=== PATIENT | female | born 1935 | race Caucasian/White ===

== ENCOUNTER → 2017-08-02 | Outpatient (CLI) | payer MEDICARE, BC | END | disposition home or self-care (01) | LOC: KCIC US 13:05 | DX: E04.2 Nontoxic multinodular goiter (principal) | CPT/HCPCS: 76536 ==

== ENCOUNTER → 2018-08-25 | Outpatient (CLI) | payer MEDICARE, BC ==
[~2018-08-25] MED LIST: CEPH-263 PO; OMEP10CA PO
--- NOTE | 2018-08-25 11:36 | KCIC ---
THYROID ULTRASOUND History: Follow-up of thyroid nodules. Comparison: Thyroid ultrasound, August 02, 2017. Technique: Multiple grayscale and color Doppler images of the thyroid gland were obtained. Findings: Measurements in length, AP (height), and transverse (width), respectively, unless otherwise stated. The right thyroid lobe measures 5 x 0.9 x 1.6 cm. The right thyroid lobe is multinodular. There is a stable cyst in the mid thyroid lobe. Mixed cystic and solid nodule in the inferior left thyroid lobe. Cystic portion contains colloid. The most suspicious nodule is characterized TR3, greatest dimension 1.3 cm. This nodule is in the mid to inferior right thyroid lobe. Nodule may have been present on the prior study but was not specifically measured. The left thyroid lobe measures 4.7 x 1.4 x 1.7 cm. The left thyroid lobe is multinodular. The most suspicious nodule is characterized TR4 in the mid left thyroid lobe, greatest dimension 0.8 cm. Nodule is unchanged from prior study, was not previously specifically measured. Multiple tiny colloid cysts are seen in the left thyroid lobe. The isthmus measures 2 mm. There is a 1.1 cm cyst of the right isthmus. ACR Thyroid Imaging, Reporting And Data System (TI-RADS): White Paper Of The ACR TI-RADS Committee. Journal of the [employer], volume 14, issue 5, pages 587-595 (November 2016). IMPRESSION: Multinodular thyroid gland without significant change. Consider ultrasound follow-up in 12 months. Electronically signed by: Wilton Alejandra MD (08/25/2018 11:31 AM) [id number]
== END | disposition home or self-care (01) ==
LOC: KCIC US 10:22
PROVIDERS: ATTEND Otolaryngology
DX: E04.2 Nontoxic multinodular goiter (principal)
CPT/HCPCS: 76536

== ENCOUNTER → 2018-11-24 | Outpatient (CLI) | payer MEDICARE, BC ==
--- NOTE | 2018-11-24 12:22 | KCIC ---
EXAM: Carotid Doppler sonogram. HISTORY: Dizziness. Lightheadedness.. TECHNIQUE: Stewart scale and color Doppler sonographic evaluation of the neck with spectral waveform analysis was performed and static images are submitted for review. FINDINGS: There is intimal thickening involving the common carotid arteries and mild atherosclerotic plaque involving the carotid bulbs and proximal internal and external carotid arteries. The peak systolic velocity within the right common carotid artery is 72 cm/sec. The peak systolic velocity within the right internal carotid artery is 85 cm/sec and the end diastolic velocity within the right internal carotid artery is 19 cm/sec. The right ICA/CCA ratio is 1.19. The peak systolic velocity within the left common carotid artery is 91 cm/sec. The peak systolic velocity within the left internal carotid artery is 76 cm/sec and the end diastolic velocity within the left internal carotid artery is 21 cm/sec. The left ICA/CCA ratio is 0.84. There is normal antegrade flow within both vertebral arteries. IMPRESSION: No Doppler evidence of hemodynamically significant stenosis within the carotid or vertebral arteries. PQRS Compliance Statement - Stenosis calculations for CT, MR and conventional angiography are based upon measurement of the distal ICA diameter in accordance with the NASCET methodology. Stenosis calculations for carotid ultrasound studies are derived from validated velocity criteria which are known to correlate with the NASCET methodology. Electronically signed by: Piedad Osei MD (11/24/2018 12:19 PM) [place] [id number]
== END | disposition home or self-care (01) ==
LOC: KCIC US 08:48
PROVIDERS: ATTEND Family Medicine
DX: I65.23 Occlusion and stenosis of bilateral carotid arteries (principal)
CPT/HCPCS: 93880

== ENCOUNTER → 2019-09-04 | Outpatient (CLI) | payer MEDICARE, BC ==
--- NOTE | 2019-09-04 15:52 | KCIC ---
Thyroid ultrasound dated 09/04/2019. Comparison made to 08/25/2018. CLINICAL INDICATION: Follow-up thyroid nodules. FINDINGS: Right lobe thyroid gland measures 5.0 cm length. Left lobe measures 5.8 cm in length. There are multiple solid and cystic nodules throughout both lobes, unchanged. The largest on the right is located at the lower pole measuring about 1.3 cm maximum dimension, unchanged. The largest on the left measures approximately 8 mm maximum dimension at the midpole, unchanged. No new lesions are seen. Thyroid isthmus unremarkable. IMPRESSION: No significant interval change in bilateral thyroid nodules. Electronically signed by: Pedro De Los Santos MD (09/04/2019 3:00 PM) [facility]-[id number]
== END | disposition home or self-care (01) ==
LOC: KCIC US 10:38
PROVIDERS: ATTEND Otolaryngology
DX: E04.2 Nontoxic multinodular goiter (principal)
CPT/HCPCS: 76536

== ENCOUNTER → 2020-09-16 | Outpatient (CLI) | payer MEDICARE, BC ==
--- NOTE | 2020-09-16 17:15 | KCIC ---
MRI of the lumbar spine without contrast 09/16/2020 CLINICAL HISTORY: Low back pain which radiates down the left leg for one month. History of previous l umbar spine surgery. TECHNIQUE: Unenhanced T1-weighted and T2-weighted sagittal and axial and inversion recovery sagittal images of the lumbar spine were obtained. FINDINGS: Minimal S-shaped curvature of the thoracolumbar spine is seen. Cagelike devices are seen wi thin the L4-5 and L5-S1 disc spaces. Degenerative signal changes are seen involving the remaining dis cs of the lumbar spine. Degenerative signal changes within the marrow surrounding these discs. The co nus medullaris is normal morphology, position, and signal characteristics. At the L1-2 and L2-3 disc spaces there are minimal generalized disc bulges. Degenerative changes are seen involving the facet joints bilaterally. There is mild ligamentum flavum hypertrophy bilaterally. These findings do not result in significant central spinal canal or neural foraminal stenosis. At the L3-4 disc space there is a mild to moderate generalized disc bulge. This is eccentric to the l eft. Superimposed on this disc bulge is a focal central disc herniation. This measures 5 mm in AP haley meter. It extrudes inferiorly and laterally to the left. Degenerative changes are seen involving the facet joints bilaterally. There is mild to moderate ligamentum flavum hypertrophy bilaterally. Small facet joint effusions are seen bilaterally. These findings when combined result in mild to moderate l eft greater than right central spinal canal stenosis. Severe left lateral recess stenosis is seen. Th e disc herniation appears to impinge upon the left L4 nerve root within the left lateral aspect of th e central spinal canal. No neural foraminal stenosis is seen. At the L4-5 level, the patient is post right hemilaminectomy. Degenerative changes are seen involving the facet joints bilaterally. There is mild left sided ligamentum flavum hypertrophy. These findings do not result in significant central spinal canal or neural foraminal stenosis. At the L5-S1 level the patient is post right hemilaminectomy. Degenerative changes are seen involving the facet joints bilaterally. These findings do not result in significant central spinal canal or ne ural foraminal stenosis. IMPRESSION: 1. The patient is post right hemilaminectomy and fusion at L4-5 and L5-S1. 2. The changes of degenerative disc disease are seen throughout the lumbar spine. At the L4-5 disc sp ruddy a left paracentral focal disc herniation is seen which extrudes inferiorly and laterally to the l eft. This contributes to mild to moderate left greater than right central spinal canal stenosis with severe left lateral recess stenosis. It appears to impinge upon the left L4 nerve root within the lef t lateral aspect of the central spinal canal. Electronically signed by: Gilberto Mendes MD (09/16/2020 5:12 PM) [id number]
== END ==
LOC: KCIC MRI 09:47
PROVIDERS: ATTEND Family Medicine
DX: M51.16 Intervertebral disc disorders with radiculopathy, lumbar region (principal); M48.061 Spinal stenosis, lumbar region without neurogenic claudication; M47.26 Other spondylosis with radiculopathy, lumbar region; M25.48 Effusion, other site; Z98.890 Other specified postprocedural states
CPT/HCPCS: 72148

== ENCOUNTER 2020-12-02 09:46 | Emergency (ER) | payer MEDICARE, BC ==
[~2020-12-02] VITALS: Ht 165.1 cm; Wt 54.6 kg
--- NOTE | 2020-12-02 11:31 | PHYS DOC ---
Past Medical History Past Medical History: Anxiety, Diabetes-Type II (EMILIANO STEVEN ) Past Medical History: Anxiety, Diabetes-Type II (RUDDY BLACKBURN APRN) Past Surgical History: Cholecystectomy, Tonsillectomy, Other Additional Past Surgical Histo: 2 lower back surgies (EMILIANO STEVEN ) Past Surgical History: Cholecystectomy, Tonsillectomy Additional Past Surgical Histo: 2 back surgeries (RUDDY BLACKBURN APRN) Smoking Status: Never Smoker Alcohol Use: None (EMILIANO STEVEN ) Smoking Status: Never Smoker Alcohol Use: None Drug Use: None (RUDDY BLACKBURN APRN) General Adult EDM: Chief Complaint: MECHANICAL FALL HPI: HPI: 85 yo F (EMILIANO STEVEN ) HPI: Patient is 85-year-old female who presents emergency department with complaints of a laceration to her forehead after tripping in her garage, losing her balance and falling and hitting her head on the floor in her kitchen. Patient denies any loss of consciousness, vision changes, dizziness, nausea, vomiting, neck pain, back pain, or extremity pain after the fall. Her only complaint is a laceration above her right eye. Patient is unsure when her last tetanus shot was. She currently rates her pain a 6 out of 10 on pain scale, she denies any alleviating factors, the pain is worse if you touch the affected area. She denies the use of any blood thinners. She denies any chest pain, dizziness, or palpitations prior to the fall or after the fall. (RUDDY BLACKBURN APRN) Review of Systems: Review of Systems: Constitutional: Denies fever or chills. [] Eyes: Denies change in visual acuity. [] HENT: Denies nasal congestion or sore throat. [] Respiratory: Denies cough or shortness of breath. [] Cardiovascular: Denies chest pain or edema. [] GI: Denies abdominal pain, nausea, vomiting, bloody stools or diarrhea. [] : Denies dysuria. [] Musculoskeletal: Denies back pain or joint pain. [] Integument: Denies rash. [] Neurologic: Denies headache, focal weakness or sensory changes. [] Endocrine: Denies polyuria or polydipsia. [] Lymphatic: Denies swollen glands. [] Psychiatric: Denies depression or anxiety. [] (EMILIANO STEVEN DO) Review of Systems: Complete ROS is negative unless otherwise noted in HPI. (RUDDY BLACKBURN APRN) Heart Score: C/O Chest Pain: No Risk Factors: Risk Factors: DM, Current or recent (<one month) smoker, HTN, HLP, family history of CAD, obesity. Risk Scores: Score 0 - 3: 2.5% MACE over next 6 weeks - Discharge Home Score 4 - 6: 20.3% MACE over next 6 weeks - Admit for Clinical Observation Score 7 - 10: 72.7% MACE over next 6 weeks - Early Invasive Strategies (EMILIANO STEVEN DO) C/O Chest Pain: No (RUDDY BLACKBURN APRN) Allergies: Allergies: Allergies Coded Allergies Type Severity Reaction Last Updated Verified Sulfa (Sulfonamide Antibiotics) Allergy Intermediate shaking, rash 12/02/20 Yes codeine Allergy Intermediate rash, shaking 12/02/20 Yes erythromycin base Allergy Intermediate shaking, rash 12/02/20 Yes (EMILIANO STEVEN DO) Physical Exam: PE: Constitutional: Well developed, well nourished, no acute distress, non-toxic appearance. HENT: Normocephalic, atraumatic, Eyes: EOMI, conjunctiva normal, no discharge. Neck: Normal range of motion, supple, Cardiovascular: S1/2 present, regular rhythm Lungs & Thorax: Speaking in full sentences, bilateral equal chest rise, no tachypnea or increased work of breathing Abdomen: soft, no tenderness, Skin: Warm, dry, no erythema, no rash. [] Back: No tenderness, no CVA tenderness. [] Extremities: No tenderness, no cyanosis, no lower extremity edema Neurologic: Alert and oriented X 3, normal motor function, normal sensory function, no focal deficits noted. [] Psychologic: Affect normal, judgement normal, mood normal. [] (EMILIANO STEVEN DO) PE: Constitutional: Well developed, well nourished, no acute distress, non-toxic appearance. [] HENT: Normocephalic, bilateral external ears normal, nose normal; swelling and laceration above right eye Eyes: PERRLA, EOMI, conjunctiva normal, no discharge. [] Neck: Normal range of motion, no stridor, nontender, no crepitus. [] Cardiovascular:Heart rate regular rhythm Lungs & Thorax: Respirations even and unlabored, no retractions, no respiratory distress Skin: Warm, dry, no erythema, no rash; 2 cm x 6 cm stellate laceration above the right eye, no visible foreign body, no active bleeding, [] Extremities: No cyanosis, ROM intact, no edema. [] Neurologic: Alert and oriented X 3, no focal deficits noted. [] Psychologic: Affect normal, judgement normal, mood normal. [] (RUDDY BLACKBURN APRN) Current Patient Data: Vital Signs: Vital Signs Date Time Temp Pulse Resp B/P (MAP) Pulse Ox O2 Delivery O2 Flow Rate FiO2 12/02/20 11:06 76 16 123/61 (81) 97 Room Air 12/02/20 10:02 99.0 99.0 (EMILIANO STEVEN DO) EKG: EKG: [] (EMILIANO STEVEN DO) Radiology/Procedures: Radiology/Procedures: [] (EMILIANO STEVEN DO) Radiology/Procedures: PROCEDURE: CT HEAD AND CERVICAL SPINE WO CT Head W/O Contrast: History: Reason: fall head injury / Spl. Instructions: / History: Comparison: none Axial images were obtained without contrast. There is moderate diffuse atrophy. There is no mass effect, extraaxial fluid collections or hydrocephalus. There is no focal loss of snow-white matter distinction to suggest acute ischemia, i.e. stroke. There is a small ossification in the interhemispheric fissure. There is c alcification arising posteriorly from the inner table calvarium on the right which could be a meningioma. Impression: No acute findings. End impression CT C-Spine without contrast: Clinical History: Reason: fall head injury / Spl. Instructions: / History: Technique: Axial helical images of the cervical spine were obtained without contrast, axial coronal and sagittal reconstruction was performed. Findings: There is no loss of vertebral body stature. There is no prevertebral soft tissue swelling. The vertebral bodies are well aligned. There is straightening of the normal cervical lordosis which can be positional or could be chronic. The C1-C2 relationship is normal. The visualized osseous structures appear normal. Evaluation of the central canal is limited without contrast. There is multiple posterior disc bulges resulting in flattening of the thecal sac. There does not appear to be gross flattening of the cervical cord. There is moderate narrowing of multiple neuroforamen. There is a small cervical rib fracture on the right. Impression: No acute findings. Clinical correlation suggested. End impression Electronically signed by: Chuy Christensen III, MD (12/02/2020 2:32 PM) [id number] Laceration Repair by me: Anesthesia: 1% lidocaine locally with epinephrine Location: Right forehead Tendon/Joint/Nerves: No injury Foreign body: None detected after copious irrigation and exploration with NS and chlorhexidine Technique: 14 Simple Interrupted Sutures with 6-0 Ethilon Complexity: No subcutaneous sutures/mucosal repair/edge excision Post Closure Length: 8 cm total Patient's bleeding was easily controlled in the department and there is no indication of anemia. No evidence of compartment syndrome, neurologic injury, vascular injury, open gamaliel int, tendon laceration, or foreign body. Patient is appropriate for outpatient follow up. Scar minimazation instructions given. [] (RUDDY BLACKBURN APRN) Course & Med Decision Making: Course & Med Decision Making Pertinent Labs and Imaging studies reviewed. (See chart for details) [] (EMILIANO SETVEN DO) Course & Med Decision Making Patient is 85-year-old female who presents emergency department with complaints of a laceration of her right CT the patient's head revealed no acute findings. CT of the patient's neck revealed a small cervical rib fracture on the right. Wound repair as documented above. Prescription written for Keflex 500 mg p.o. 4 times daily x7 days. Patient instructed to take Tylenol or ibuprofen as needed for pain. Follow-up with primary care doctor return to the ER in 7 days to have sutures removed. I advised the patient to not submerge her head in water until the sutures have been removed. Patient and her verbalized an understanding of home care, medications, follow-up, and return to ED instructions and was in agreement with the plan of care. (RUDDY BLACKBURN APRN) Dragon Disclaimer: Dragon Disclaimer: This electronic medical record was generated, in whole or in part, using a voice recognition dictation system. (EMILIANO STEVEN DO) Departure Departure Impression: Primary Impression: Laceration of forehead, right, complicated Qualified Codes: S01.81XA - Laceration without foreign body of other part of head, initial encounter Additional Impressions: Need for Tdap vaccination Closed head injury without loss of consciousness Qualified Codes: S09.90XA - Unspecified injury of head, initial encounter Disposition: HOME / SELF CARE / HOMELESS Condition: STABLE Referrals: SEBLE ARAGON MD (PCP) Patient Instructions: Facial Laceration, [id number], Head Injury, Adult, [id number], VIS, Tetanus, Diphtheria (Td); Tetanus, Diphtheria, Pertussis (Tdap) - [facility] Additional Instructions: Fill the prescription and use it as directed. Keep the area clean and dry. You may take Tylenol or ibuprofen as needed for pain. Cleanse the affected area with soap and water twice a day, apply dressing as needed. Follow-up with your primary care doctor, or return to the emergency room in 7 days to have the sutures removed, sooner if you develop signs of infection including: redness, warmth, drainage, or a fever. Follow the head injury precautions provided. Follow up with your primary care doctor in 1-2 days for reevaluation. Return to the ER if symptoms worsen. Scripts Cephalexin (CEPHALEXIN) 500 Mg Capsule 1 CAP PO QID for 7 Days, #28 CAP 0 Refills Prov: RUDDY BLACKBURN APRN 12/02/20 EMILIANO STEVEN DO December 02, 2020 11:31 RUDDY BLACKBURN APRN December 02, 2020 15:22
[2020-12-02] MEDS ORDERED: DIPH,PERTUSS(ACELL),TET VAC/PF 0.5 ML SYRINGE. VAX IM ONE (14:00)
[2020-12-02] MEDS ORDERED: LIDOCAINE 1%/EPI 1:100,000 20 ML VIAL. SQ ONE (14:00)
[2020-12-02 14:17] VITALS: BP 169/70
--- NOTE | 2020-12-02 14:35 | RAD ---
CT Head W/O Contrast: History: Reason: fall head injury / Spl. Instructions: / History: Comparison: none Axial images were obtained without contrast. There is moderate diffuse atrophy. There is no mass effect, extraaxial fluid collections or hydrocep halus. There is no focal loss of snow-white matter distinction to suggest acute ischemia, i.e. stroke. There is a small ossification in the interhemispheric fissure. There is calcification arising posteri kwesi from the inner table calvarium on the right which could be a meningioma. Impression: No acute findings. End impression CT C-Spine without contrast: Clinical History: Reason: fall head injury / Spl. Instructions: / History: Technique: Axial helical images of the cervical spine were obtained without contrast, axial coronal and sagittal reconstruction was performed. Findings: There is no loss of vertebral body stature. There is no prevertebral soft tissue swelling. The vert ebral bodies are well aligned. There is straightening of the normal cervical lordosis which can be p ositional or could be chronic. The C1-C2 relationship is normal. The visualized osseous structures ap pear normal. Evaluation of the central canal is limited without contrast. There is multiple posterio r disc bulges resulting in flattening of the thecal sac. There does not appear to be gross flattening of the cervical cord. There is moderate narrowing of multiple neuroforamen. There is a small cervica l rib fracture on the right. Impression: No acute findings. Clinical correlation suggested. End impression Electronically signed by: Chuy Christensen III, MD (12/02/2020 2:32 PM) [id number]
[2020-12-02] MEDS ORDERED: CEPH500C PO (15:30)
== END 2020-12-02 15:45 | disposition home or self-care (01) ==
LOC: ER 09:46
DX: S01.81XA Laceration without foreign body of other part of head, initial encounter (principal); E11.9 Type 2 diabetes mellitus without complications; F41.9 Anxiety disorder, unspecified; Z88.1 Allergy status to other antibiotic agents; Z88.2 Allergy status to sulfonamides; Z88.5 Allergy status to narcotic agent; W01.198A Fall on same level from slipping, tripping and stumbling with subsequent striking against other object, initial encounter; Y93.89 Activity, other specified; Y92.89 Other specified places as the place of occurrence of the external cause; Y99.8 Other external cause status
CPT/HCPCS: 12015; 70450; 72125; 90471; 90715; 99285; J3490